=== PATIENT | female | born 1935 | race Hispanic/Latino ===

== ENCOUNTER 2016-12-26 20:41 | Emergency (ER) | payer MEDICARE ==
[2016-12-26 21:16] VITALS: BP 147/63
== END 2016-12-26 22:48 | disposition left against medical advice (07) ==
LOC: ED 20:41
DX: M54.9 Dorsalgia, unspecified (principal); Z53.21 Procedure and treatment not carried out due to patient leaving prior to being seen by health care provider

== ENCOUNTER 2021-06-07 11:22 | Emergency (ER) | payer MEDICARE ==
[2021-06-07] MEDS ORDERED: MECLIZINE 25 MG TAB PO ONE (11:59)
--- NOTE | 2021-06-07 11:59 | Emergency Department Report ---
<WALKER OBRIEN - Last Filed: 06/07/21 15:03> ED Dizziness HPI - General Chief Complaint: Dizziness Stated Complaint: DIZZINESS Time Seen by Provider: 06/07/21 11:46 Source: patient, family Mode of arrival: Ambulatory Limitations: No Limitations - History of Present Illness Initial Comments: Patient is 86 years old female with history of hypertension, congestive heart failure and diabetes. Patient brought to the emergency room by her family for evaluation of dizziness that is been going on for 2 weeks now. Patient stated that her symptoms started with right ear infection and she went to an urgent care and she was diagnosed with cerumen impaction. Patient stated that her symptoms not getting better and she became dizzy and she hit nightstand approximately 4 days ago. Patient denied any headache, focal weakness numbness or tingling sensation. Patient also denied ataxia, blurry vision or speech problem. Patient stated that her dizziness is worse when she stands up and change position. She denied any nausea or vomiting. MD Complaint: dizziness, lightheadedness -: week(s) (2) Timing: gradual onset Description: sense of movement, "room spinning" History of Same: Yes History of Trauma: Yes Improves With: remaining still Associated Symptoms: denies other symptoms - Related Data Previous Rx's Medication Instructions Recorded Last Taken Type Nitrofurantoin [place]/M-Cryst 100 mg PO Q12HR 7 Days #14 capsule 06/07/21 Unknown Rx [Macrobid CAP] Allergies Allergy/AdvReac Type Severity Reaction Status Date / Time codeine Allergy Rash Verified 12/26/16 21:18 measles vaccine, live Allergy Anaphylaxis Verified 12/26/16 21:18 aspirin AdvReac Unknown Verified 12/26/16 21:18 ciprofloxacin [From Cipro] AdvReac Nausea Verified 12/26/16 21:18 ibuprofen AdvReac Vomiting Verified 12/26/16 21:18 morphine AdvReac Unknown Verified 12/26/16 21:22 naproxen [From Naprosyn] AdvReac Swelling Verified 12/26/16 21:18 ED Review of Systems Comment: All other systems reviewed and negative Constitutional: denies: chills, fever Respiratory: denies: cough, shortness of breath, SOB with exertion, SOB at rest Cardiovascular: denies: chest pain, palpitations Gastrointestinal: denies: abdominal pain, nausea, vomiting, diarrhea, hematemesis, melena, hematochezia Musculoskeletal: denies: back pain Neurological: vertigo. denies: headache, weakness, numbness, paresthesias, confusion, abnormal gait ED Past Medical Hx - Past Medical History Hx Hypertension: Yes Hx Congestive Heart Failure: Yes Hx Diabetes: Yes Hx Arthritis: Yes Hx COPD: Yes Additional medical history: diverticulitis - Surgical History Hx Appendectomy: Yes Additional Surgical History: Hyst, tubal ligation, eye surgery - Social History Smoking Status: Never Smoker Substance Use Type: None - Medications Home Medications: Home Medications Medication Instructions Recorded Confirmed Last Taken Type Nitrofurantoin [place]/M-Cryst 100 mg PO Q12HR 7 Days #14 capsule 06/07/21 Unknown Rx [Macrobid CAP] ED Physical Exam - General Limitations: No Limitations General appearance: alert, in no apparent distress - Head Head exam: Present: atraumatic, normocephalic, normal inspection - Eye Eye exam: Present: normal appearance - ENT ENT exam: Present: normal exam, normal orophraynx, mucous membranes moist - Neck Neck exam: Present: normal inspection, full ROM. Absent: tenderness, meningismus - Respiratory Respiratory exam: Present: normal lung sounds bilaterally - Cardiovascular Cardiovascular Exam: Present: regular rate, normal rhythm, normal heart sounds - GI/Abdominal GI/Abdominal exam: Present: soft, normal bowel sounds. Absent: distended, tenderness, guarding, rebound, rigid, organomegaly, mass, bruit, pulsatile mass, hernia - Extremities Exam Extremities exam: Present: normal inspection, full ROM, normal capillary refill. Absent: tenderness, pedal edema, joint swelling, calf tenderness - Back Exam Back exam: Present: normal inspection, full ROM. Absent: CVA tenderness (R), CVA tenderness (L) - Neurological Exam Neurological exam: Present: alert, oriented X3, CN II-XII intact, normal gait, reflexes normal. Absent: motor sensory deficit - Psychiatric Psychiatric exam: Present: normal mood - Skin Skin exam: Present: warm, intact, normal color ED Medical Decision Making - Lab Data Result diagrams: 06/07/21 11:59 06/07/21 11:59 - EKG Data -: EKG Interpreted by Ne EKG shows normal: sinus rhythm Rate: normal - EKG Data 06/07/21 15:03 Left bundle branch block. - Medical Decision Making Patient is 86 years old female with history of hypertension, congestive heart failure and diabetes. Patient brought to the emergency room by her family for evaluation of dizziness that is been going on for 2 weeks now. Patient stated that her symptoms started with right ear infection and she went to an urgent care and she was diagnosed with cerumen impaction. Patient stated that her symptoms not getting better and she became dizzy and she hit nightstand approximately 4 days ago. Patient denied any headache, focal weakness numbness or tingling sensation. Patient also denied ataxia, blurry vision or speech problem. Patient stated that her dizziness is worse when she stands up and change position. She denied any nausea or vomiting. Patient remained stable in the ER with slightly low blood pressure. Patient received normal saline 1 L. Patient stated that she is feeling better. Patient is on chronic meclizine. CT brain is unremarkable. Chest x-ray is negative for acute finding. Patient advised to follow-up with her primary care physician in the next 2 to 3 days and to return to the ER if he develop any new symptoms. ED Disposition Clinical Impression: Dizziness, UTI (urinary tract infection) Disposition: 01 HOME / SELF CARE / HOMELESS Is pt being admited?: No Condition: Stable Instructions: Dizziness, Urinary Tract Infection, Adult, [id number] Prescriptions: Nitrofurantoin [place]/M-Cryst [Macrobid CAP] 100 mg PO Q12HR 7 Days #14 capsule Referrals: SHANNAN PEREZ MD [Primary Care Provider] - 3-5 Days <ASHLEY JUDD - Last Filed: 06/07/21 19:01> ED Review of Systems ROS: Stated complaint: DIZZINESS Other details as noted in HPI ED Course Vital Signs 06/07/21 06/07/21 06/07/21 11:28 11:57 12:00 Temperature 97.9 F Pulse Rate 73 70 70 Respiratory 18 11 L 14 Rate Blood Pressure 138/60 Blood Pressure 139/60 [Right] O2 Sat by Pulse 96 97 96 Oximetry 06/07/21 06/07/21 06/07/21 12:21 12:28 13:00 Temperature 98.2 F Pulse Rate 73 73 67 Respiratory 18 13 Rate Blood Pressure 138/60 115/54 Blood Pressure [Right] O2 Sat by Pulse 97 97 Oximetry ED Medical Decision Making - Lab Data Result diagrams: 06/07/21 11:59 06/07/21 11:59 - Medical Decision Making Urinalysis reveals pyuria. Patient prescribed nitrofurantoin. Critical care attestation.: If time is entered above; I have spent that time in minutes in the direct care of this critically ill patient, excluding procedure time. ED Disposition Is pt being admited?: No Does the pt Need Aspirin: No
--- NOTE | 2021-06-07 12:22 | XRay Report ---
CHEST 1 VIEW 06/07/2021 11:09 AM INDICATION / CLINICAL INFORMATION: Lightheadedness/Dizziness. COMPARISON: None available. FINDINGS: SUPPORT DEVICES: None. HEART / MEDIASTINUM: No significant abnormality. LUNGS / PLEURA: Tubular density is noted within the left lung which may represent subsegmental atelec tasis versus vascular prominence versus sequela of prior infection. No pneumothorax. ADDITIONAL FINDINGS: No significant additional findings. IMPRESSION: 1. Tubular density noted within the left lung which may represent subsegmental atelectasis versus vas cular prominence versus sequela of prior infection. Signer Name: Antoine Dempsey DO Signed: 06/07/2021 12:18 PM Workstation Name: [id number]
--- NOTE | 2021-06-07 12:35 | Cat Scan Report ---
CT HEAD WITHOUT CONTRAST INDICATION / CLINICAL INFORMATION: Lightheadedness/Dizziness. TECHNIQUE: All CT scans at this location are performed using CT dose reduction for ALARA by means of automated exposure control. COMPARISON: None available. FINDINGS: HEMORRHAGE: None. EXTRA-AXIAL SPACES: Mildly prominent likely related to cortical atrophy. VENTRICULAR SYSTEM: Normal in size and morphology for the patient's age. CEREBRAL PARENCHYMA: There are periventricular hypodensities consistent with microvascular ischemic c hange. This is most prominent in the left frontal lobe. No acute territorial infarct. MIDLINE SHIFT / HERNIATION: None. CEREBELLUM / BRAINSTEM: No significant abnormality. ORBITS: History of cataract surgery. SOFT TISSUES: No significant abnormality. SKULL: No significant abnormality. PARANASAL SINUSES / MASTOID AIR CELLS: Normal as visualized ADDITIONAL FINDINGS: None. IMPRESSION: 1. No acute intracranial abnormality. 2. Sequela of chronic microvascular ischemic change. Signer Name: Antoine Dempsey DO Signed: 06/07/2021 12:31 PM Workstation Name: [id number]
[2021-06-07 12:54] LABS: INR 0.93 (0.87-1.13)
[2021-06-07 13:04] VITALS: BP 115/54
[2021-06-07 13:13] LABS: BUN/Creatinine Ratio 22; Blood Urea Nitrogen 22 mg/dL (7-17); Calcium 9.9 mg/dL (8.4-10.2); Hemolysis Index 21
[2021-06-07] MEDS ORDERED: SODIUM CHLORIDE 0.9% 1000 ML 1,000 ML IV ONE (14:25)
[2021-06-07 14:27] LABS: Hematocrit 42.4 % (30.3-42.9); Hemoglobin 13.8 gm/dl (10.1-14.3); Mean Corpuscular HGB Conc 33 % (30-34); Mean Corpuscular Volume 86 fl (79-97); Red Blood Count 4.95 M/mm3 (3.65-5.03); Red Cell Distribution Width 14.9 % (13.2-15.2)
[2021-06-07 14:28] LABS: Platelet Count 135 K/mm3 (140-440)
[2021-06-07 15:50] LABS: Band Neutrophils # (Manual) 0.5 K/mm3; Basophils % (Manual) 0 % (0.0-1.8); Total Cells Counted 100
[2021-06-07 15:51] LABS: Platelet Estimate Consistent w Auto
[2021-06-07 18:21] LABS: Color,Urine Yellow (Yellow)
[2021-06-07 18:22] LABS: Bilirubin,Urine Negative (Negative); Blood,Urine Negative (Negative); Protein,Urine <15 mg/dL mg/dL (Negative)
[2021-06-07 18:23] LABS: RBC,Urine < 1.0 /HPF (0.0-6.0); WBC,Urine > 182.0 /HPF (0.0-6.0)
[2021-06-07] MEDS ORDERED: NITROFURANTOIN MONOHYD/M-CRYST 100 MG CAP PO STA (19:06)
--- NOTE | 2021-06-09 08:58 | Electrocardiograph Report ---
[facility] Test Date: 2021-06-07 Test Time: 11:39:14 Pat Name: CAMERON HUANG Department: Room: Gender: F Endocrinologist: MIGUEL RECIOB: 1935 Requested By: WALKER OBRIEN Order Number: [id number] Reading MD: Sue Jones Measurements Intervals [place] Rate: 73 P: 48 [place]: 164 QRS: -18 QRSD: 133 T: 145 QT: 396 QTc: 437 Interpretive Statements Sinus rhythm Left bundle branch block No previous ECG available for comparison Electronically Signed On 06-09-2021 8:58:10 EDT by Sue Jones
== END 2021-06-08 07:22 | disposition home or self-care (01) ==
LOC: ED 11:22
DX: R42 Dizziness and giddiness (principal); N39.0 Urinary tract infection, site not specified; Z88.5 Allergy status to narcotic agent; Z88.6 Allergy status to analgesic agent; I10 Essential (primary) hypertension; E11.8 Type 2 diabetes mellitus with unspecified complications
CPT/HCPCS: 36415; 70450; 71045; 80048; 81001; 82140; 84484; 85007; 85025; 85610; 87040; 93005; 99284